=== PATIENT | female | born 1995 ===

== ENCOUNTER 2018-07-07 14:03 | Emergency (ER) | payer OTHER ==
[2018-07-07 14:16] VITALS: BP 134/59
[2018-07-07] MEDS ORDERED: Magnesium CITRATE* 300 ML BTL PO ONE (16:54)
--- NOTE | 2018-07-07 17:11 | ED ---
Abdominal Pain/Female - HPI Summary HPI Summary: Patient is a 22-year-old female presenting to the ED with a chief complaint of a 3 day history of left lower quadrant aching with "different bowel movement patterns." She states this is very concerning to her she has never had constipation before. She states this started on Monday, 3 days ago while in a yoga class where she felt the need to have a bowel movement. Since she was in class, she did not leave the class to go have a bowel movement. After the class, she did have a small bowel movement, however stated the discomfort of the LLQ pain which started in the over class continued. She states this has been intermittent. Last bowel movement yesterday morning, however was somewhat loose. She does endorse bloating throughout and endorses early satiety. She denies fevers, sweats, chills. She denies any nausea or vomiting. She states her eating patterns have consisted of the exact same food for several weeks she is attempting to lose some weight. - History of Current Complaint Chief Complaint: Wade Stated Complaint: "SHARP PAIN IN STOMACH" PER PT Time Seen by Provider: 07/07/18 14:46 Hx Obtained From: Patient ?: No Onset/Duration: Sudden Onset Timing: Constant - I. Severity Initially: Mild Severity Currently: Mild Pain Intensity: 6 Pain Scale Used: 0-10 Numeric Radiates: No Radiates to: LLQ Character: Cramping Aggravating Factor(s): Nothing Alleviating Factor(s): Nothing Associated Signs and Symptoms: Positive: Constipation - Risk Factors Ectopic Risk Factor: Negative Ovarian Torsion Risk Factor: Negative Allergies/Adverse Reactions: Allergies Allergy/AdvReac Type Severity Reaction Status Date / Time No Known Allergies Allergy Verified 07/07/18 14:16 PMH/Surg Hx/FS Hx/Imm Hx Previously Healthy: Yes - Immunization History Hx Pertussis Vaccination: No Immunizations Up to Date: Yes Infectious Disease History: No Infectious Disease History: Denies: Traveled Outside the [place] in Last 30 Days - Social History Occupation: Unemployed Lives: With Family Alcohol Use: Occasionally Hx Substance Use: No Substance Use Type: Reports: None Hx Tobacco Use: No - I Smoking Status (MU): Never Smoked Tobacco Review of Systems Constitutional: Negative Negative: Fever, Chills, Fatigue, Skin Diaphoresis Negative: Palpitations, Chest Pain Negative: Shortness Of Breath, Cough Positive: Abdominal Pain - LLQ. Negative: Vomiting, Diarrhea, Nausea, Other Positive: no symptoms reported, see HPI Negative: Arthralgia, Myalgia Skin: Negative All Other Systems Reviewed And Are Negative: Yes Physical Exam Triage Information Reviewed: Yes Vital Signs On Initial Exam: Initial Vitals Temp Pulse Resp BP Pulse Ox 98.3 F 78 16 134/59 100 07/07/18 14:12 07/07/18 14:12 07/07/18 14:12 07/07/18 14:12 07/07/18 14:12 Vital Signs Reviewed: Yes Appearance: Positive: Well-Appearing, Well-Nourished Skin: Positive: Warm, Skin Color Reflects Adequate Perfusion Head/Face: Positive: Normal Head/Face Inspection Eyes: Positive: EOMI, VALERIA, Conjunctiva Clear Neck: Positive: Supple, No Lymphadenopathy Respiratory/Lung Sounds: Positive: Clear to Auscultation, Breath Sounds Present Cardiovascular: Positive: RRR, Pulses are Symmetrical in both Upper and Lower Extremities Abdomen Description: Positive: Soft, Other: - LLQ pain- no pain on palpation Musculoskeletal: Positive: Normal, Strength/ROM Intact Neurological: Positive: Speech Normal Psychiatric: Positive: Affect/Mood Appropriate Diagnostics - Vital Signs Vital Signs Temp Pulse Resp BP Pulse Ox 07/07/18 14:12 98.3 F 78 16 134/59 100 - Laboratory Lab Statement: Any lab studies that have been ordered have been reviewed, and results considered in the medical decision making process. Abdominal Pain Fem Course/Dx - Course Course Of Treatment: Patient is evaluated for LLQ pain, symptoms of constipation and bloating 3 days. Abdominal x-ray obtained which shows moderate amount of stool. Patient endorses discomfort as a 2/10. These have been present 3 days. She states she is otherwise healthy, takes no medications. She has a very strict regimented diet. No pain with palpation throughout the abdomen on physical exam. She is requesting constipation management. She is given mag citrate for her constipation. She will f/u with [facility] for worsening sxs. - Diagnoses Differential Diagnosis: Positive: Other - LLQ pain Provider Diagnoses: Constipation Discharge - Sign-Out/Discharge Documenting (check all that apply): Patient Departure Patient Received Moderate/Deep Sedation with Procedure: No - Discharge Plan Condition: Stable Disposition: HOME Patient Education Materials: Magnesium Citrate (By mouth), Constipation (ED) Referrals: No Primary Care Phys,NOPCP [Primary Care Provider] - Additional Instructions: Drink plenty of fluids You may remain on your current diet - it is balanced with fibers, fruits and vegetables Take 150mls or half the bottle of mag citrate and if he does not succeed with a bowel movement, take the other half in the morning If he continued to have some constipation, he may take [id number] [id number] for relief If he develop any worsening or changing symptoms, return to the ED immediately While taking the magnesium citrate, he may take Tylenol or ibuprofen to help with cramping - Billing Disposition and Condition Condition: STABLE Disposition: Home
== END 2018-07-07 17:16 | disposition home or self-care (01) ==
LOC: ED 14:03
DX: K59.00 Constipation, unspecified (principal)
CPT/HCPCS: 74018; 99282